=== PATIENT | female | born 2000 | race Two or more races ===

== ENCOUNTER 2021-07-26 11:00 | Emergency (ER) | payer OTHER, SELFPAY ==
--- NOTE | ~2021-07-26 | XR_ITS ---
EXAMINATION: XR ANKLE, RIGHT CLINICAL INFORMATION: Fall. COMPARISON: None TECHNIQUE: AP, lateral, and mortise views of the right ankle. FINDINGS: The ankle mortise and subtalar joints are normal. There is no visible acute fracture, dislocation or subluxation seen. There is no bony erosive changes. There is mild bimalleolar soft tissue swelling. XR/XR ankle RT 2V IMPRESSION: Bimalleolar soft tissue swelling. No visible acute fracture, dislocation or subluxation seen..
[2021-07-26 11:59] VITALS: BP 173/82; PULSE 91; RESP 18; TEMP 36.7; O2SAT 98; BMI 45.6
[2021-07-26 12:37] LABS: HCG Quantitative < 2 mIU/mL
--- NOTE | 2021-07-26 16:24 | ED_ITS ---
HPI - Fall General Chief Complaint: Fall Stated Complaint: fell on ice R ankle pain Time Seen by Provider: 07/26/21 13:34 Source: patient Mode of arrival: ambulatory Limitations: no limitations History of Present Illness HPI Narrative: 21-year-old female who presents emergency department for evaluation of right ankle injury. Patient states she was walking into work when she slipped on an icy surface. She states that her right ankle completely inverted and she put her entire body weight on her ankle. She developed immediate pain on her right ankle. She was not able to walk any to be assisted into the building. Since the injury she states she has a constant, sharp pain in her right ankle which is 10/10. She denied any other injury from the fall. Patient states that her menstrual periods are very regular inches approximately 5 days late for her menstrual period. She denied being ill in any other way prior to coming to the emergency department. Related Data Allergies Allergy/AdvReac Type Severity Reaction Status Date / Time No Known Allergies Allergy Verified 07/26/21 16:22 Review of Systems Review of Systems: Yes all other systems are reviewed and are negative [facility] Past Medical History [facility] Narrative: Past medical history: None. Past surgical history: Tonsillectomy. Social history: She denies tobacco use. She occasionally drinks alcohol. She denies drug use. Medical History (Updated 07/26/21 @ 16:35 by Brendan Weston MD) No known health problems Social History Social History Advance Directives: No Advance Directives Information Provided: No Physical Exam Vital Signs: Vital Signs: Last Vital Signs Temp 98.0 F 07/26/21 11:59 Pulse 91 07/26/21 11:59 Resp 18 07/26/21 11:59 BP 173/82 H 07/26/21 11:59 Pulse Ox 98 07/26/21 11:59 BMI result Body Mass Index 45.6 Const: Other: Awake, alert, female, she is very pleasant and cooperative, she does not appear to be in distress, she answers all questions appropriately. HENMT: Head: Yes normal to inspection, Yes normocephalic and Yes atraumatic Resp: Effort & Inspection: normal respiratory effort Extrem: Other: Right ankle revealed soft tissue swelling over the lateral malleolus, this area is tender to palpation, she has no ecchymosis or swelling noted over her foot with no tenderness over the foot. She does have tenderness with palpation over the lateral malleolus. Her extremities neurovascularly intact. Psych: Appearance: grossly normal Mental Status: mental status grossly normal Speech and movement: Normal speech and movement present Course Course Course Narrative: 21-year-old female who presents emergency department for evaluation of slip and fall with injury to her right ankle. She describes an inversion injury of the ankle. Since the fall she has not been able to bear weight secondary to pain. Physical examination did reveal lateral soft tissue swelling over the lateral malleolus with tenderness of this area, there is no ecchymosis or tenderness over her foot. X-ray of the right ankle was reviewed by me interpreted by the radiologist as soft tissue swelling only with no acute fracture and I agree with this reading. patient's quantitative beta-hCG was negative. She should be approximately 5 weeks based on her last menstrual period of June 10, 2021 therefore I do believe this is a true negative..The patient was given Ibuprofen 600 mg orally. Her right ankle was placed in an Trevon wrap and stirrup splint. She was given crutches. She will need to be nonweightbearing for 1 week and follow-up with orthopedics or her PCP for re-evaluation. Patient was given a work note and discharged home. MDM - Fall Lab Data Labs: Lab Results 07/26/21 Range/Units 12:04 Beta HCG, Quant < 2 mIU/mL Discharge Plan Discharge Clinical Impression: Inversion sprain of right ankle Qualifiers: Encounter type: initial encounter Qualified Code(s): S93.401A - Sprain of unspecified ligament of right ankle, initial encounter Patient Disposition: Home, Self-Care Instructions: Ankle Sprain (ED) Additional Instructions: The x-rays of your ankle revealed no broken bones which is reassuring. Your quantitative beta-hCG (blood test) was negative. I believe this is a true negative test however if you do not have a menstrual period in the next 1-2 weeks then you should repeat the test. Wear the Trevon wrap, air cast and use the crutches for 1 week. Apply ice for 15 minutes 4 to 6 times a day for the next 3-4 days to help reduce the pain and swelling, keep your leg elevated this will also help reduce the pain. Take ibuprofen 200 mg pills, 3 pills every 6 hours as needed for pain. Take Tylenol (acetaminophen) 500 mg pills, 2 pills every 4 to 6 hours as needed for pain. Follow-up with your docto or the orthopedic doctor on-call in 1 week for re-ev aluation. Please return to the emergency department if your symptoms get worse or if you develop any symptoms that are concerning to you. Please see the work note. Referrals: Ricardo Santizo MD [Physician] - 1 week Stand Alone Forms: Work/School Release
[2021-07-26] MEDS: Ibuprofen 600 MG TABLET PO (16:51)
== END 2021-07-26 16:57 | disposition home or self-care (01) ==
PROVIDERS: Emergency Provider Emergency Medicine Emergency Medical Services; PCP Internal Medicine
DX: S93.401A Sprain of unspecified ligament of right ankle, initial encounter (principal); W00.0XXA Fall on same level due to ice and snow, initial encounter; Y93.01 Activity, walking, marching and hiking; Y92.9 Unspecified place or not applicable; Y99.0 Civilian activity done for income or pay
CPT/HCPCS: 36415; 73600; 84702; 99283

== ENCOUNTER → 2021-08-09 13:21 | Outpatient (BNVA) | payer OTHER, SELFPAY | PROVIDERS: PCP Internal Medicine; Visit Provider Physician Assistant Medical ==

== ENCOUNTER → 2021-08-21 13:07 | Outpatient (BNVA) | payer OTHER, SELFPAY | PROVIDERS: PCP Internal Medicine; Visit Provider Physician Assistant Medical | DX: Z13.89 Encounter for screening for other disorder (principal) | CPT/HCPCS: 99213 ==